=== PATIENT | female | born 1985 | race Caucasian/White ===

== ENCOUNTER → 2021-04-06 01:04 | Outpatient (CLI) | payer BC, SELFPAY ==
[2021-04-06 23:48] LABS: SARS-CoV-2 RNA PCR Negative
== END ==
PROVIDERS: PCP Family Medicine; Visit Provider Obstetrics & Gynecology Gynecology
DX: Z01.812 Encounter for preprocedural laboratory examination (principal); Z20.822 Contact with and (suspected) exposure to COVID-19
CPT/HCPCS: C9803; U0003; U0005

== ENCOUNTER 2021-04-09 01:51 | Day surgery (SDC) | payer BC, SELFPAY ==
[2021-04-03 09:51] VITALS: BMI 21.9
--- NOTE | 2021-04-06 18:12 | WPDANESEPP ---
Anes - Eval Pre Procedure Procedure: Operation Date: 04/09/21 09:00 Proposed Procedures p Excision of Hymen Remnant - Mitzi Camacho MD Date/Time: 04/06/21 18:12 Pre Op Diagnosis: hymen remnant Patient Data Age: 35 Gender: F Height: 1.6 m Weight: 56 kg Allergies Allergy/AdvReac Type Severity Reaction Status Date / Time No Known Allergies Allergy Verified 04/03/21 10:12 Home Medications Medication Instructions Recorded Confirmed Type Vitamin D3 1 cap PO DAILY 04/03/21 04/03/21 History lamotrigine 100 mg PO DAILY 04/03/21 04/03/21 History norgestimate-ethinyl estradiol 1 tablet PO DAILY 04/03/21 04/03/21 History [Tri Femynor] Patient hx anesthesia problems: none Family hx anesthesia problems: none PMFSH Past Medical History Medical History (Updated 04/06/21 @ 18:12 by Amador Valencia DO) Epilepsy Surgical History Surgical History (Updated 04/06/21 @ 18:12 by Amador Valencia DO) History of appendectomy Social History Social History Smoking status: Never smoker Alcohol intake: current Drinks per week: 2 Substance use: never Substance use type: does not use Spiritual care concerns: No Exam Day of Procedure 04/06/21 18:12
--- NOTE | 2021-04-09 07:21 | P.HP_ITS ---
History of Present Illness History of Present Illness Consent: Risks, benefits, and alternatives have been discussed and questions answered. Patient agrees to proceed with procedure. Chief complaint: hymen remnant Narrative: Sana Alfaro is a 35 year old female complaining of symptoms from a hymenal remnant. During sex the flap of extra tissue gets caught and is painful. Options were reviewed and the patient has chosen to proceed with surgical excision. Risks of infection, bleeding, and persistent pain were reviewed. Patient voices understanding and agrees to proceed. Review of Systems Review of Systems: not repeated day of surgery; patient states no changes in status [facility] Past Medical History Medical History (Updated 04/09/21 @ 07:25 by Mitzi Camacho MD) Anxiety Depression Epilepsy Temporal lobe epilepsy onset 2017 Surgical History Surgical History (Updated 04/06/21 @ 18:12 by Amador Valencia DO) History of appendectomy Social History Social History Smoking status: Never smoker Alcohol intake: current Drinks per week: 2 Substance use: never Substance use type: does not use Spiritual care concerns: No Meds Home Medications and Allergies Home Medications Medication Instructions Recorded Confirmed Type Vitamin D3 1 cap PO DAILY 04/03/21 04/03/21 History lamotrigine 100 mg PO DAILY 04/03/21 04/03/21 History norgestimate-ethinyl estradiol 1 tablet PO DAILY 04/03/21 04/03/21 History [Tri Femynor] Allergies Allergy/AdvReac Type Severity Reaction Status Date / Time No Known Allergies Allergy Verified 04/03/21 10:12 Exam Const: General: healthy appearing and alert Orientation/consciousness: patient oriented x3 Resp: Effort & Inspection: normal respiratory effort Auscultation: clear to auscultation bilaterally Cardio: Rate: regular rate Rhythm: regular rhythm GI: GI Palp: Yes Soft to palpation, No Tenderness to palpation present (GI) and No Palpable mass present : External Female Exam: other ( right hymen more prominent than the left(this is the portion bothering pt ) Speculum Exam - Vagina: normal appearance of the vagina and normal vaginal discharge Speculum Exam - Cervix: normal appearance of the cervix Bimanual exam- vagina & uterus: uterine size normal and consistency normal Bimanual Exam- Adnexa, other: normal adnexae and No adnexal tenderness Neuro: General: patient oriented x3 Assessment and Plan Assessment and plan (1) Hymenal remnant: Code(s): N89.8 - Other specified noninflammatory disorders of vagina Status: Acute Assessment and Plan: planned excision of the remnant.
--- NOTE | 2021-04-09 07:21 | WPDHPUPDATE1 ---
History and Physical Update Update Date/Time: 04/09/21 07:21 History and Physical has been reviewed, including an updated exam of the patient. There are NO changes in the patient's condition. Risks, benefits, and alternatives have been discussed and questions answered. Patient agrees to proceed with procedure.
[2021-04-09 07:30] VITALS: BP 113/72; PULSE 73; RESP 16; TEMP 36.6; O2SAT 100
[2021-04-09] MEDS: ACETAMINOPHEN 500 MG TABLET 1000 MG PO (07:43)
[2021-04-09] MEDS: LACTATED RINGERS 1,000 ML 30 ML IV CONT (07:54)
--- NOTE | 2021-04-09 08:09 | P.PNAN_ITS ---
Anes - Eval Final PreProcedure Day of Procedure 04/09/21 08:09 Patient weight: normal Heart: regular rate and rhythm Lungs: clear to auscultation Airway: Mallampati scale class 1 Neurological: alert and oriented Last oral intake: >/= 8 hours ASA classification: II Emergent: no Anesthetic plan: proceed Anesthesia type and monitoring: general GIVS and standard monitoring Informed Consent: The patient's anesthetic plan and its attendant risks and be nefits were discussed with the patient/family/POA. Questions were solicited and answers provided to the satisfaction of the patient/family/POA.
[2021-04-09] MEDS: KETOROLAC 30 MG/ML VIAL (*BKC) IV PUSH (09:03)
[2021-04-09] MEDS: LIDO 1%/EPINEPHRINE 1:100,000 20 ML VIAL 50 ML INFILTRATE (09:07)
[2021-04-09 09:18] VITALS: BP 105/56; PULSE 75; RESP 12; O2SAT 97
[2021-04-09 09:50] VITALS: BP 105/69; PULSE 66; RESP 14
[2021-04-09] MEDS: fentaNYL CITRATE INJ (*CRX) 100 MCG/2 ML VIAL 25 MCG IV PUSH ×2 (09:55→09:59)
--- NOTE | 2021-04-16 08:14 | W.PM.PROC2 ---
Procedure Note - Detailed Date of Procedure 04/09/21 Pre-op Diagnosis hymen remnant Post-op Diagnosis same Procedure Performed Excision of hymenal remnant Surgeon Mitzi Camacho MD Anesthesia MAC and local Findings right hymen is prominent Description of Procedure the right hymenal remnant pieces injected with 1% lidocaine with epinephrine. The excess tissue is excised using Metzenbaum scissors. The tissue was closed in a single layer using 3-0 Vicryl. Good hemostasis was obtained. The patient is awakened from anesthesia and taken to recovery in stable condition. Estimated Blood Loss 5 Drains No Packing No Pathology none sent Complications No immediate complications Condition stable Disposition PACU
== END 2021-04-09 10:10 | disposition home or self-care (01) ==
PROVIDERS: PCP Family Medicine; Visit Provider Obstetrics & Gynecology Gynecology
PROC: (CPT 56700; principal; 2021-04-09 09:00)
DX: N89.8 Other specified noninflammatory disorders of vagina (principal); F41.8 Other specified anxiety disorders; G40.909 Epilepsy, unspecified, not intractable, without status epilepticus
CPT/HCPCS: 56700; A9270; J1885; J2250; J2405; J2704; J3010; J7120